=== PATIENT | female | born 1980 | race Caucasian/White ===

== ENCOUNTER → 2017-02-23 | Outpatient (CLI) | payer OTHER ==
--- NOTE | 2017-02-26 09:36 | MR ---
EXAMINATION: MRI of the left knee HISTORY: Pain COMPARISON: 01/18/2016 TECHNIQUE: Multiplanar and multisequence images obtained of the left knee without contrast. There is mild motion artifact on several sequences. FINDINGS: The patellar and quadriceps tendons appear intact. The ACL and the PCL are intact. There i s mild prepatellar fluid signal. The medial and lateral collateral ligament complexes appear grossly intact. There is truncation of the body of the medial meniscus otherwise the medial and lateral men isci appear intact. There is a small joint effusion. There is disruption of the lateral retinaculum at the level of the upper condyle. There is mild lateral subluxation of the patella. There is edema within these prefemoral fat pad distally. Mild edema is noted along the soft tissues of the medial a spect of the knee and appears separate to the MCL. IMPRESSION: 1. 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 2. 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 3. Mild truncation of the body of the medial meniscus. 4. Mild prepatellar bursitis. 5. Possible prefemoral fat pad impingement syndrome. 6. Likely mild pes anserine bursitis.
== END ==
LOC: MW.MRI 14:59
PROVIDERS: ATTEND Family Medicine
DX: M25.562 Pain in left knee (principal)
CPT/HCPCS: 73721-26-LT; 73721-LT

== ENCOUNTER 2024-03-05 11:13 | Emergency (ER) | payer BC, OTHER ==
[2024-03-05] MEDS: Sodium Chloride 0.9% 2.5 ML Syringe FLUSH PRN (11:31)
[2024-03-05] MEDS: Sodium Chloride 0.9% 10 ML Syringe FLUSH PRN (11:31)
[2024-03-05] MEDS: diphenhydrAMINE 50 MG/ML SDV IVPUSH ONE (11:43)
[2024-03-05] MEDS: Sodium Chloride 0.9% 1,000 ML IV ONE (11:43)
[2024-03-05] MEDS: Metoclopramide 10 MG/2 ML SDV IVPUSH ONE (11:43)
[2024-03-05] MEDS: Ketorolac 30 MG/ML SDV IVPUSH ONE (11:43)
[2024-03-05] MEDS: Ondansetron 4 MG/2 ML SDV IVPUSH ONE (11:44)
[2024-03-05 11:58] LABS: BASOPHILS ABSOLUTE AUTO 0.02 K/uL (0.00-0.20); BASOPHILS PERCENT AUTO 0.2 % (0.0-1.0); EOSINOPHILS ABSOLUTE AUTO 0.29 K/uL (0.00-0.45); EOSINOPHILS PERCENT AUTO 3.6 % (0.0-6.0); HEMATOCRIT 38.3 % (37.0-47.0); HEMOGLOBIN 13.2 g/dL (12.0-16.0); IMMATURE GRAN ABSOLUTE AUTO 0.01 K/uL (0.00-0.05); IMMATURE GRAN PERCENT AUTO 0.1 % (0.0-0.4); LYMPHOCYTES ABSOLUTE AUTO 2.27 K/uL (1.00-4.80); LYMPHOCYTES PERCENT AUTO 28.3 % (24.0-44.0); MEAN CORPUSCULAR HEMOGLOBIN 30.1 pg (28.0-32.0); MEAN CORPUSCULAR HGB CONC 34.5 g/dL (32.0-36.0); MEAN CORPUSCULAR VOLUME 87.4 fL (83.0-99.0); MONOCYTES ABSOLUTE AUTO 0.65 K/uL (0.00-0.80); MONOCYTES PERCENT AUTO 8.1 % (0.0-8.0); NEUTROPHILS ABSOLUTE AUTO 4.78 K/uL (1.80-7.70); NEUTROPHILS PERCENT AUTO 59.7 % (41.0-71.0); PLATELET COUNT,PLT 281 K/uL (150-400); RED BLOOD CELL COUNT 4.38 M/uL (4.10-5.30); WHITE BLOOD CELL COUNT,WBC 8.02 K/uL (3.9-11.3)
[2024-03-05 12:46] LABS: A/G RATIO 0.9 (0.9-1.6); ALANINE AMINOTRANSFERASE,ALT 58 IU/L (14-63); ALBUMIN 3.5 g/dL (3.4-5.0); ALKALINE PHOSPHATASE 87 U/L (46-116); ASPARTATE AMNIOTRANSFERASE,AST 32 IU/L (15-37); BILIRUBIN TOTAL 0.3 mg/dL (0.2-1.0); BLOOD UREA NITROGEN,BUN 18 mg/dL (7.0-18.0); CALCIUM 9.7 mg/dL (8.5-10.1); CARBON DIOXIDE,CO2 26.1 mmol/L (21.0-32.0); CHLORIDE,CL 105 mmol/L (98-107); EST CRCL DRUG DOSING (CG) 58.55 mL/min; GLUCOSE RANDOM 87 mg/dL (74-106); MAGNESIUM 1.9 mg/dL (1.8-2.4); PROTEIN TOTAL,TP 7.2 g/dL (6.4-8.2); SODIUM,NA 141 mmol/L (136-145); TSH ULTRASENSITIVE 1.55 uIU/mL (0.36-3.74)
[2024-03-05 12:47] LABS: ESTIMATED GFR 73 mL/min (>60)
[2024-03-05 13:02] LABS: CORONAVIRUS COVID-19 NAA NEGATIVE (NEGATIVE); INFLUENZA A NAA NEGATIVE (NEGATIVE); INFLUENZA B NAA NEGATIVE (NEGATIVE)
== END 2024-03-05 13:59 | disposition home or self-care (01) ==
LOC: MW.ED 11:13
DX: G43.909 Migraine, unspecified, not intractable, without status migrainosus (principal); Z75.8 Other problems related to medical facilities and other health care; Z88.8 Allergy status to other drugs, medicaments and biological substances; Z90.49 Acquired absence of other specified parts of digestive tract
CPT/HCPCS: 0240U; 36415; 70450; 71045; 80053; 83735; 84443; 84484; 85025; 96361; 96374; 96375; 99285; J1200; J1885; J2405; J2765; J3490; J7030; 93005

== ENCOUNTER 2024-12-23 13:51 | Emergency (ER) | payer BC ==
[2024-12-23] MEDS: Ondansetron 4 MG Tab.DIS PO STA (15:25)
[2024-12-23] MEDS: traMADol 50 MG Tab PO STA (15:25)
== END 2024-12-23 15:35 | disposition home or self-care (01) ==
LOC: MW.ED 13:51
DX: S06.0X0A Concussion without loss of consciousness, initial encounter (principal); Z75.8 Other problems related to medical facilities and other health care; Z88.8 Allergy status to other drugs, medicaments and biological substances; Z79.899 Other long term (current) drug therapy; Z90.49 Acquired absence of other specified parts of digestive tract; W00.0XXA Fall on same level due to ice and snow, initial encounter
CPT/HCPCS: 70450; 70450-26; 72125; 72125-26; 99283; 99284